=== PATIENT | female | born 1950 | race Caucasian/White ===

== ENCOUNTER 2020-03-09 19:27 | Emergency (ER) | payer MEDICARE ==
[2020-03-09] MEDS ORDERED: Sodium Chloride 0.9% 10 ML Syringe FLUSH PRN (19:49)
[2020-03-09] MEDS ORDERED: Sodium Chloride 0.9% 1,000 ML IV ONE (19:50)
[2020-03-09] MEDS ORDERED: Famotidine 20 MG/2 ML SDV IVPUSH ONE (19:51)
[2020-03-09] MEDS ORDERED: diphenhydrAMINE 50 MG/ML SDV IVPUSH ONE (19:51)
[2020-03-09] MEDS ORDERED: methylPREDNISolone Sodium Succinate 125 MG/2 ML SDV IVPUSH ONE (19:53)
[2020-03-09] MEDS ORDERED: EPINEPHrine 1 MG/ML SDV IM ONE (19:53)
--- NOTE | 2020-03-09 19:54 | EDM.PDOC ---
ED HPI GENERAL MEDICAL PROBLEM - General Chief Complaint: Allergic Reaction Stated Complaint: BEE STING Time Seen by Provider: 03/09/20 19:30 Source of Information: Reports: Patient, RN, RN Notes Reviewed History Limitations: Reports: No Limitations - History of Present Illness INITIAL COMMENTS - FREE TEXT/NARRATIVE: Pt here to ER with spouse after wasp sting to bottom lip. Face is red and edematous in addition to actual wasp sting to bottom lip. Automatically anaphylaxis protocol in place. VSS. No immediate signs of airway compromise. Pt is talking and no respiratory distress noted. No pain score given. Onset: Today Onset Date: 03/09/20 Onset Time: 19:00 Duration: Minutes: Location: Reports: Face, Other (Bottom lip) Quality: Reports: Other (Swollen and red from wasp sting ) Associated Symptoms: Reports: Other (Edema of lips and BL cheeks) denies pain Pain Score (Numeric/FACES): 0 - Related Data Allergies Allergy/AdvReac Type Severity Reaction Status Date / Time bee venom protein (honey bee) Allergy Swelling Verified 03/09/20 19:47 Penicillins Allergy Rash Verified 03/09/20 19:47 Sulfa (Sulfonamide Allergy Rash Verified 03/09/20 19:47 Antibiotics) Home Meds: Home Meds lisinopriL [Lisinopril] 40 mg PO DAILY 03/09/20 [History] ED ROS ALLERGIC REACTION - Review of Systems Review Of Systems: See Below Constitutional: Reports: No Symptoms HEENT: Reports: Other (bottom lip from sting ) Cardiovascular: Reports: No Symptoms Endocrine: Reports: No Symptoms GI/Abdominal: Reports: No Symptoms : Reports: No Symptoms Musculoskeletal: Reports: No Symptoms Skin: Reports: No Symptoms, Other (Bottom lip swollen and red from stin g) Neurological: Reports: No Symptoms Psychiatric: Reports: No Symptoms Hematologic/Lymphatic: Reports: No Symptoms Immunologic: Reports: No Symptoms ED EXAM GENERAL NO PERIP PULSE - Physical Exam Exam: See Below Exam Limited By: No Limitations General Appearance: Alert, WD/WN, No Apparent Distress Ears: Normal External Exam Throat/Mouth: Normal Inspection, Normal Lips, Normal Oropharynx, Normal Voice Head: Atraumatic, Normocephalic Neck: Normal Inspection, Supple Respiratory/Chest: No Respiratory Distress, Lungs Clear, Normal Breath Sounds, No Accessory Muscle Use Cardiovascular: Regular Rate, Rhythm (Female) Exam: Deferred Rectal (Female) Exam: Deferred Extremities: Normal Inspection, Normal Range of Motion Neurological: Alert, Oriented, CN II-XII Intact, Normal Cognition Psychiatric: Normal Affect, Normal Mood Skin Exam: Warm, Dry, Other (Swollen bottom lip from sting ) Lymphatic: No Adenopathy Course - Vital Signs Last Recorded V/S: Last Vital Signs Temp 36.2 C 03/09/20 20:08 Pulse 59 L 03/09/20 20:08 Resp 18 03/09/20 20:08 BP 164/90 H 03/09/20 20:08 Pulse Ox 99 03/09/20 20:08 - Orders/Labs/Meds Orders: Active Orders 24 hr Category Date Time Status Peripheral IV Care [RC] . DIRECTED Care 03/09/20 19:49 Active Sodium Chloride 0.9% [Saline Flush] Med 03/09/20 19:49 Active 10 ml FLUSH ASDIRECTED PRN Peripheral IV Insertion Adult [OM.PC] Routine Oth 03/09/20 19:49 Ordered Medication Orders Sodium Chloride (Saline Flush) 10 ml FLUSH ASDIRECTED PRN PRN Reason: Keep Vein Open Last Admin: 03/09/20 20:18 Dose: 10 ml Documented by: MAME Meds: Medications Generic Name Dose Route Start Last Admin Trade Name Freq PRN Reason Stop Dose Admin Sodium Chloride 10 ml 03/09/20 19:49 03/09/20 20:18 Saline Flush FLUSH 10 ml ASDIRECTED PRN Administration Keep Vein Open Discontinued Medications Generic Name Dose Route Start Last Admin Trade Name Freq PRN Reason Stop Dose Admin Diphenhydramine HCl 25 mg 03/09/20 19:51 03/09/20 20:16 Benadryl IVPUSH 03/09/20 19:52 25 mg ONETIME ONE Administration Epinephrine HCl 0.4 mg 03/09/20 19:53 03/09/20 19:31 Adrenalin IM 03/09/20 19:54 0.4 mg ONETIME ONE Administration Famotidine 20 mg 03/09/20 19:51 03/09/20 20:18 Pepcid IVPUSH 03/09/20 19:52 20 mg ONETIME ONE Administration Sodium Chloride 1,000 mls @ 999 mls/hr 03/09/20 19:50 03/09/20 20:17 Normal Saline IV 03/09/20 20:50 999 mls/hr ASDIRECTED ONE Administration Methylprednisolone Sodium Succinate 125 mg 03/09/20 19:53 03/09/20 20:15 Solu-Medrol IVPUSH 03/09/20 19:54 125 mg ONETIME ONE Administration - Re-Assessments/Exams Free Text/Narrative Re-Assessment/Exam: 03/09/20 19:48 Examione pt and proceed with Benadryl, Pepcid, Solu medrol, and Epi. Bolus will be given. 03/09/20 21:24 Bolus done. Pt improving great. VSS. Airway not compromised. 03/09/20 21:44 Ok to D/C home. Pt stable Departure - Departure Time of Disposition: 21:44 Disposition: Home, Self-Care 01 Condition: Good Clinical Impression: Bee sting-induced anaphylaxis - Discharge Information *PRESCRIPTION DRUG MONITORING PROGRAM REVIEWED*: Not Applicable *COPY OF PRESCRIPTION DRUG MONITORING REPORT IN PATIENT CHILO: Not Applicable Instructions: Anaphylactic Reaction, Adult Referrals: PCP,None [Primary Care Provider] - Forms: ED Department Discharge Care Plan Goals: Please take 40 mg Prednisone by mouth in the morning for 5 days Please take 1 tablet (25 mg) Benadryl every 6 hours by mouth as needed for itching/rash Please take 1 tablet (20 mg) Famotidine by mouth in the morning for 14 days as stress ulcer prevention and antihistamine Please fill prescription for Epi pens at your earliest convenience If symptoms do not improve or worsen, please contact your nearest medical facility Sepsis Event Note (ED) - Focused Exam Vital Signs: Vital Signs Temp Pulse Resp BP Pulse Ox 03/09/20 20:08 36.2 C 59 L 18 164/90 H 99 03/09/20 19:51 59 L 18 164/90 H 99 03/09/20 19:27 36.2 C 55 L 220/115 H 98 - Problem List & Annotations (1) Bee sting-induced anaphylaxis SNOMED Code(s): 692511875 Code(s): T63.441A - TOXIC EFFECT OF VENOM OF BEES, ACCIDENTAL, INIT Status: Acute Priority: High Current Visit: Yes Onset Date: ~03/09/20 Qualifiers: Encounter type: initial encounter Injury intent: accidental or unint entional Qualified Code(s): T63.441A - Toxic effect of venom of bees, accidental (unintentional), initial encounter - Problem List Review Problem List Initiated/Reviewed/Updated: Yes - My Orders Last 24 Hours: My Active Orders 03/09/20 19:49 Peripheral IV Care [RC] . DIRECTED Sodium Chloride 0.9% [Saline Flush] 10 ml FLUSH ASDIRECTED PRN Peripheral IV Insertion Adult [OM.PC] Routine - Assessment/Plan Last 24 Hours: My Active Orders 03/09/20 19:49 Peripheral IV Care [RC] . DIRECTED Sodium Chloride 0.9% [Saline Flush] 10 ml FLUSH ASDIRECTED PRN Peripheral IV Insertion Adult [OM.PC] Routine Plan: Please take 40 mg Prednisone by mouth in the morning for 5 days Please take 1 tablet (25 mg) Benadryl every 6 hours by mouth as needed for itching/rash Please take 1 tablet (20 mg) Famotidine by mouth in the morning for 14 days as stress ulcer prevention and antihistamine Please fill prescription for Epi pens at your earliest convenience If symptoms do not improve or worsen, please contact your nearest medical facility
== END 2020-03-09 22:36 | disposition home or self-care (01) ==
LOC: JP.ED 19:27
DX: T63.441A Toxic effect of venom of bees, accidental (unintentional), initial encounter (principal); T78.2XXA Anaphylactic shock, unspecified, initial encounter; Z88.0 Allergy status to penicillin; Z88.2 Allergy status to sulfonamides; Z91.030 Bee allergy status
CPT/HCPCS: 96372; 96374; 96375; 99282; J0171; J1200; J2930; J3490; J7030; 99284

== ENCOUNTER 2025-02-08 17:29 | Emergency (ER) | payer MEDICARE ==
[2025-02-08] MEDS: cefTRIAXone 1 GM, Lidocaine 1% 2.1 ML IM ONE (18:51)
== END 2025-02-08 19:16 | disposition home or self-care (01) ==
LOC: JP.ED 17:29
DX: L03.114 Cellulitis of left upper limb (principal); I10 Essential (primary) hypertension; Z90.710 Acquired absence of both cervix and uterus; Z91.030 Bee allergy status; Z88.0 Allergy status to penicillin; Z88.2 Allergy status to sulfonamides; Z79.899 Other long term (current) drug therapy
CPT/HCPCS: 96372; 99283; J0696; J2003